=== PATIENT | female | born 1975 | race Caucasian/White ===

== ENCOUNTER → 2018-11-12 | Outpatient (CLI) | payer BC ==
[~2018-11-12] MED LIST: ALBU8.5H8 INH; CETI10TA24 PO; FLUT9.9S NAS
[2018-11-12 10:43] LABS: BASOPHILS # (AUTO) 0.03 x10^3/uL (0-0.1); BASOPHILS % (AUTO) 0 % (0-1); EOSINOPHILS # (AUTO) 0.08 x10^3/uL (0-0.4); EOSINOPHILS % (AUTO) 1 % (1-7); LYMPHOCYTES # (AUTO) 2.18 x10^3/uL (1-3.4); LYMPHOCYTES % (AUTO) 27 % (22-44); MD NO; MEAN CORPUSCULAR HEMOGLOBIN 31.8 pg (27.0-34.8); MEAN CORPUSCULAR HGB CONC 33.8 g/dL (32.4-35.8); MEAN PLATELET VOLUME 8.5 fL (7.4-10.4); MONOCYTES # (AUTO) 0.59 x10^3/uL (0.2-0.8); MONOCYTES % (AUTO) 7 % (2-9); NEUTROPHILS # (AUTO) 5.23 x10^3/uL (1.8-6.8); NEUTROPHILS % (AUTO) 65 % (42-75); PLATELET COUNT 319 x10^3/uL (130-400); RED BLOOD COUNT 4.63 x10^6/uL (3.82-5.3); RED CELL DISTRIBUTION WIDTH 12.9 % (9.6-15.2)
[2018-11-12 10:47] LABS: ALBUMIN 3.9 g/dL (3.4-5.0); ANION GAP 5 mmol/L (5-15); CALCIUM 8.9 mg/dL (8.5-10.1); CHLORIDE 106 mmol/L (98-107)
[2018-11-12 10:52] LABS: ALANINE AMINOTRANSFERASE 19 U/L (12-78); ALKALINE PHOSPHATASE 50 U/L (45-117); BILIRUBIN,TOTAL 0.6 mg/dL (0.2-1.0); CREATININE 0.75 mg/dL (0.55-1.02); TOTAL PROTEIN 7.5 g/dL (6.4-8.2)
[2018-11-12 10:58] LABS: MICROSCOPIC NOT IND
[2018-11-12 11:01] LABS: CULTURE INDICATED? NO
== END | disposition home or self-care (01) ==
LOC: STAR 09:39
PROVIDERS: ATTEND Obstetrics & Gynecology
DX: Z01.812 Encounter for preprocedural laboratory examination (principal); N93.9 Abnormal uterine and vaginal bleeding, unspecified; N80.9 Endometriosis, unspecified; Z91.040 Latex allergy status
CPT/HCPCS: 36415; 80053; 81003; 84702; 85025

== ENCOUNTER 2018-11-21 06:23 | Day surgery (SDC) | payer BC ==
[~2018-11-21] VITALS: Ht 157.5 cm; Wt 64.0 kg
[2018-11-21] MEDS ORDERED: GABAPENTIN 300 MG CAPSULE PO STA (06:39)
[2018-11-21 06:43] VITALS: BP 124/75
[2018-11-21] MEDS ORDERED: LACTATED RINGERS 1,000 ML IV SCH (06:45)
[2018-11-21] MEDS ORDERED: LIDOCAINE-MPF 1%, 2ML ONE (06:55)
[2018-11-21] MEDS ORDERED: ACETAMINOPHEN 500 MG TABLET PO ONE (07:00)
[2018-11-21] MEDS ORDERED: METOCLOPRAMIDE 5 MG/ML, 2ML IV PRN (07:00)
[2018-11-21] MEDS ORDERED: MIDAZOLAM 1 MG/ML, 2ML IV PRN (07:00)
[2018-11-21] MEDS ORDERED: ONDANSETRON 2MG/ML, 2ML IV PRN (07:00)
[2018-11-21] MEDS ORDERED: HYDROmorphone 2 MG/ML, 1ML IVPush PRN (07:00)
[2018-11-21] MEDS ORDERED: ALBUTEROL/IPRATROPIUM 2.5MG/0.5MG, 3 ML NPPB PRN (07:00)
[2018-11-21] MEDS ORDERED: MORPHINE SULFATE 4 MG/ML, 1ML IVPush PRN (07:00)
[2018-11-21] MEDS ORDERED: EPHEDRINE 50 MG/ML, 1ML IM PRN (07:00)
[2018-11-21] MEDS ORDERED: EPHEDRINE 50 MG/ML, 1ML IVPush PRN (07:00)
[2018-11-21] MEDS ORDERED: hydrALAzine 20 MG/ML, 1ML IV PRN (07:00)
[2018-11-21] MEDS ORDERED: OXYcodone 5 MG/5 ML ORAL.SOL UDC PO PRN (07:00)
[2018-11-21] MEDS ORDERED: DEXAMETHASONE 4 MG/ML, 1ML IV PRN (07:00)
[2018-11-21] MEDS ORDERED: MEPERIDINE/PF 25MG/0.5ML IVPush PRN (07:00)
[2018-11-21] MEDS ORDERED: LABETALOL 5MG/ML, 20ML IV PRN (07:00)
[2018-11-21] MEDS ORDERED: BUPIVACAINE/PF 0.25% ONE (07:05)
[2018-11-21] MEDS ORDERED: FLUORESCEIN SODIUM 500 MG/5 ML ONE (07:05)
[2018-11-21] MEDS ORDERED: EPINEPHRINE 1 MG/ML, 1ML ONE (07:06)
[2018-11-21] MEDS ORDERED: GLYCOPYRROLATE 0.2MG/1ML, 5ML ONE (07:14)
[2018-11-21] MEDS ORDERED: PROPOFOL 10 MG/ML, 20ML ONE (07:14)
[2018-11-21] MEDS ORDERED: FENTANYL PF 250 MCG/5ML ONE (07:14)
[2018-11-21] MEDS ORDERED: ROCURONIUM 10MG/ML,5ML ONE (07:14)
[2018-11-21] MEDS ORDERED: MIDAZOLAM 1 MG/ML, 5ML ONE (07:14)
[2018-11-21] MEDS ORDERED: DEXAMETHASONE 4 MG/ML, 1ML ONE (07:14)
[2018-11-21] MEDS ORDERED: CEFAZOLIN 1,000 MG ONE (07:14)
[2018-11-21] MEDS ORDERED: LIDOCAINE-MPF 2% ,5ML ONE (07:22)
[2018-11-21] MEDS ORDERED: FAMOTIDINE 20 MG TABLET PO ONE (07:30)
[2018-11-21] MEDS ORDERED: OxyconTIN ER 10 MG TAB.ER PO ONE (07:30)
[2018-11-21] MEDS ORDERED: SCOPOLAMINE PATCH, 1.5MG PATCH.TD72 TD ONE (07:30)
[2018-11-21] MEDS ORDERED: ONDANSETRON 2MG/ML, 2ML ONE (08:49)
[2018-11-21] MEDS ORDERED: FENTANYL PF 100 MCG/2ML ONE (10:03)
[2018-11-21] MEDS ORDERED: OXYcodone 5 MG/5 ML ORAL.SOL UDC ONE (10:03)
[2018-11-21] MEDS: FENTANYL PF 100 MCG/2ML IV PRN ×2 (10:05→10:10)
== END 2018-11-21 16:25 | disposition home or self-care (01) ==
LOC: OUT 06:23
PROVIDERS: ATTEND Obstetrics & Gynecology
DX: N84.1 Polyp of cervix uteri (principal); N80.0 Endometriosis of uterus; N88.2 Stricture and stenosis of cervix uteri; N93.9 Abnormal uterine and vaginal bleeding, unspecified; N87.9 Dysplasia of cervix uteri, unspecified; N70.01 Acute salpingitis; F32.9 Major depressive disorder, single episode, unspecified; G43.909 Migraine, unspecified, not intractable, without status migrainosus; F17.210 Nicotine dependence, cigarettes, uncomplicated; J45.909 Unspecified asthma, uncomplicated; Z79.1 Long term (current) use of non-steroidal anti-inflammatories (NSAID); Z79.899 Other long term (current) drug therapy; Z91.040 Latex allergy status; Z98.890 Other specified postprocedural states; Z80.3 Family history of malignant neoplasm of breast
CPT/HCPCS: 58552; 81025; 88307; J0171; J0690; J1100; J2250; J2405; J2704; J3010; J3490; J7120